=== PATIENT | male | born 1965 | race Caucasian/White ===

== ENCOUNTER 2025-03-29 23:17 | Emergency (ER) | payer OTHER ==
[2025-03-29] MEDS ORDERED: Acetaminophen/HYDROcodone 325-5 MG Tab PO ONE (23:18)
[2025-03-30 00:53] LABS: BASOPHILS ABSOLUTE AUTO 0.0 x10-3/uL (0.0-0.3); BASOPHILS PERCENT AUTO 0.3 % (0.3-3.8); EOSINOPHILS ABSOLUTE AUTO 0.2 x10-3/uL (0.0-0.6); EOSINOPHILS PERCENT AUTO 1.6 % (0.1-6.8); LYMPHOCYTES ABSOLUTE AUTO 1.0 x10-3/uL (0.5-4.5); LYMPHOCYTES PERCENT AUTO 10.0 % (15.8-45.3); MEAN PLATELET VOLUME 8.2 fL (6.7-11.0); MONOCYTES ABSOLUTE AUTO 0.9 x10-3/uL (0.0-1.2); MONOCYTES PERCENT AUTO 8.6 % (5.5-15.2); NEUTROPHILS ABSOLUTE AUTO 8.3 x10-3/uL (1.7-6.9); NEUTROPHILS PERCENT AUTO 79.5 % (40.3-71.8); PLATELET COUNT,PLT 246 x10(3)uL (117-477); RED BLOOD CELL COUNT 4.71 x10(6)uL (3.90-5.90); RED CELL DISTRIBUTION WIDTH 12.2 % (12.4-15.0); WHITE BLOOD CELL COUNT,WBC 10.5 x10-3/uL (3.2-10.1)
[2025-03-30 00:59] LABS: BLOOD UREA NITROGEN,BUN 19 mg/dL (7-18); CARBON DIOXIDE,CO2 31 mmol/L (21-32); CHLORIDE,CL 105 mmol/L (100-110); CREATININE 1.4 mg/dL (0.70-1.30); ESTIMATED GFR 57 mL/min (>60); GLUCOSE RANDOM 122 mg/dL (80-116); POTASSIUM,K 4.0 mmol/L (3.5-5.3); SODIUM,NA 141 mmol/L (135-145)
[2025-03-30 01:05] LABS: A/G RATIO 1.2; ALANINE AMINOTRANSFERASE,ALT 20 U/L (12-36); ASPARTATE AMNIOTRANSFERASE,AST 12 IU/L (5-25); BILIRUBIN TOTAL 0.6 mg/dL (0.1-1.3); PROTEIN TOTAL,TP 7.3 g/dL (6.0-8.0)
== END 2025-03-30 01:35 | disposition home or self-care (01) ==
LOC: FB.ED 23:17
DX: M25.462 Effusion, left knee (principal)
CPT/HCPCS: 20610; 36415; 80053; 83605; 84550; 85025; 85651; 86140; 87070; 87205; 89060; 99283; A9270; J7512